=== PATIENT | male | born 1990 | race Caucasian/White ===

== ENCOUNTER 2017-02-04 22:23 | Emergency (ER) | payer BC, OTHER ==
[2017-02-04 22:48] VITALS: BP 127/83
--- NOTE | 2017-02-04 23:39 | EDM.PDOC ---
ED HPI GENERAL MEDICAL PROBLEM - General Chief Complaint: Lower Extremity Injury/Pain Stated Complaint: POSSIBLE RIGHT BROKEN LEG Time Seen by Provider: 02/04/17 23:28 Source of Information: Reports: Patient, RN Notes Reviewed History Limitations: Reports: No Limitations - History of Present Illness INITIAL COMMENTS - FREE TEXT/NARRATIVE: The patient states that he was playing baseball, and was sliding into home plate feet first, when he rotated his right foot outward, around 21:30. He presents with pain primarily to the lateral aspect of his right ankle, but also complains of pain to his proximal lateral right leg. He is otherwise uninjured. The patient states that he sprained his right ankle on 12/31/2016, requiring surgical screws. The patient's PCP is Annie Artis. His previous orthopedic surgeon is Dr. Mcclain, from [place]. Right Lower Leg Pain Score (Numeric/FACES): 7 - Related Data Allergies Allergy/AdvReac Type Severity Reaction Status Date / Time No Known Allergies Allergy Verified 02/04/17 22:41 Home Meds: Home Meds Hydrocodone/Acetaminophen [[place] 5-325 Tablet] 1 - 2 tab PO Q6H PRN #20 tablet 02/05/17 [Rx] Past Medical History - Past Surgical History Musculoskeletal Surgical History: Reports: ORIF (Right ankle, Left forearm) Social & Family History - Tobacco Use Smoking Status *Q: Never Smoker Tobacco Use Within Last Twelve Months: Other (See Below) (Vape) Second Hand Smoke Exposure: No - Alcohol Use Alcohol Use History: Yes Alcohol Use Frequency: Socially - Recreational Drug Use Recreational Drug Use: No - Living Situation & Occupation Living situation: Reports: , with Significant Other (Fiance) 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) Review of Systems - Review of Systems Review Of Systems: See Below Constitutional: Reports: No Symptoms Eyes: Reports: No Symptoms Ears: Reports: No Symptoms Nose: Reports: No Symptoms Mouth/Throat: Reports: No Symptoms Respiratory: Reports: No Symptoms Cardiovascular: Reports: No Symptoms GI/Abdominal: Reports: No Symptoms Genitourinary: Reports: No Symptoms Musculoskeletal: Reports: No Symptoms Skin: Reports: No Symptoms Neurological: Reports: No Symptoms Psychiatric: Reports: No Symptoms ED EXAM, GENERAL - Physical Exam Exam: See Below Exam Limited By: No Limitations General Appearance: Alert, WD/WN, No Apparent Distress Extremities: Other (There is considerable swelling with ecchymosis to the lateral aspect of the patient's right ankle. This is tender to palpation. Nontender to the medial malleolus. Nontender to the anterior and posterior syndesmoses. There is additional tenderness and swelling to the proximal lateral right leg, without ecchymosis or abrasion. Neurovascular status of the right lower extremity is intact.) ED TRAUMA EXTREMITY PROCEDURES - Splinting Right Lower Extremity Splint Site: Right leg/ankle Pre-Procedure NV Status: Normal Post-Procedure NV Status: Normal Splint Material: Fiberglass Splint Design: Posterior (with ankle at 90) Applied & Form Fitted By: Provider Provider Post-Splint Application NV Check: NV Status Normal, Good Position Complications: No Course - Vital Signs Last Recorded V/S: Last Vital Signs Temp Pulse 80 02/04/17 22:41 Resp 16 02/04/17 22:41 BP 127/83 02/04/17 22:41 Pulse Ox 98 02/04/17 22:41 - Orders/Labs/Meds Orders: Active Orders 24 hr Category Date Time Status Tibia Fibula Rt [CR] Stat Exams 02/04/17 22:43 Taken DME for Discharge [COMM] Stat Oth 02/05/17 00:20 Ordered Meds: Medications Discontinued Medications Generic Name Dose Route Start Last Admin Trade Name Freq PRN Reason Stop Dose Admin Hydrocodone Bitart/Acetaminophen 2 tab 02/04/17 23:46 02/04/17 23:52 [place] 325-5 Mg PO 02/04/17 23:47 2 tab ONETIME ONE Administration - Radiology Interpretation Free Text/Narrative:: 5-view radiographs of the right tibia/fibula appear to demonstrate a proximal fibular greenstick fracture. There is a bony opacity lateral to the talus, consistent with an avulsion fracture, not seen on prior ankle radiographs dated 01/01/2016. Additionally, there is asymmetry of the ankle mortise, suggesting ligamentous injury. Formal read per the Radiologist pending. - Re-Assessments/Exams Free Text/Narrative Re-Assessment/Exam: 02/05/17 00:19 A posterior mold splint was applied. The patient will be fitted for crutches. I will prescribe [place]. I will provide a note for work, instructing that he elevate his foot when not ambulating. He will be referred to Dr. Alvarado. Departure - Departure Time of Disposition: 00:19 Disposition: Home, Self-Care 01 Condition: Fair Clinical Impression: Fracture of proximal end of right fibula, Avulsion fracture of right ankle - Discharge Information Prescriptions: Hydrocodone/Acetaminophen [[place] 5-325 Tablet] 1 - 2 tab PO Q6H PRN #20 tablet PRN Reason: Pain (Severe 7-10) Instructions: Fibular Ankle Fracture Treated With or Without Immobilization, Adult Referrals: PCP,None [Primary Care Provider] - Donny Alvarado MD [Physician] - Forms: ED Department Discharge, Return to Work/School Form Additional Instructions: You were seen in the emergency room after injuring your right leg while sliding into home plate. X-rays of your right leg and ankle indicate that you have a fracture of your proximal fibula, and an avulsion fracture of your ankle. You have been placed into a splint. You may apply an ice pack over the splint, however, the splint cannot get wet. The splint cannot bear weight. Use crutches to get around. Elevate your right foot as much as possible when you are not walking around, for at least the next 3 days, to help minimize swelling. Take [id number]-[id number] ibuprofen 3-4 tablets (600-800 mg) every 8 hours, with food, as needed for pain. Take 1 to 2 tablets of [place] up to every 6 hours as needed for pain not relieved by ibuprofen. If you take [place], do not drive or operate heavy machinery. [place] will likely cause constipation, so consider taking a stool softener. Follow-up with the orthopedic surgeon Dr. Alvarado next week. If any other problems, please do not hesitate to return to the ER. - My Orders Last 24 Hours: My Active Orders 02/04/17 22:43 Tibia Fibula Rt [CR] Stat 02/05/17 00:20 DME for Discharge [COMM] Stat - Assessment/Plan Last 24 Hours: My Active Orders 02/04/17 22:43 Tibia Fibula Rt [CR] Stat 02/05/17 00:20 DME for Discharge [COMM] Stat
[2017-02-04] MEDS ORDERED: Acetaminophen/HYDROcodone 325-5 MG Tab PO ONE (23:46)
--- NOTE | 2017-02-05 07:43 | CR ---
Right ankle: Three views of the right ankle were obtained. Ankle mortise is slightly asymmetric suggesting the possibility of ankle instability from medial collateral injury. Bony density is seen off the medial ankle which appears fairly well corticated and most likely is old. No acute fracture is identified. Impression: 1. Soft tissue swelling. 2. Slightly asymmetric ankle mortise possibly due to mild instability from medial collateral ligament injury. Please correlate. 3. Well-corticated bony density felt to represent old injury off the medial ankle. Diagnostic code #3
--- NOTE | 2017-02-05 07:43 | CR ---
Right tibia and fibula: AP and lateral views of the right tibia and fibula were obtained. Comparison: No previous tibia or fibula exam. Fracture is identified within the proximal diaphysis of the fibula which is mildly comminuted. Alignment remains close to anatomic. Joint spaces within the knee are maintained. Soft tissue swelling is noted around the ankle. No additional fracture or other abnormality is appreciated. Impression: 1. Proximal fibular diaphyseal fracture. 2. Soft tissue swelling is seen around the ankle. Diagnostic code #3
== END 2017-02-05 00:50 | disposition home or self-care (01) ==
LOC: JD.ED 22:23
DX: S82.831A Other fracture of upper and lower end of right fibula, initial encounter for closed fracture (principal); Z98.890 Other specified postprocedural states; X50.1XXA Overexertion from prolonged static or awkward postures, initial encounter; Y93.64 Activity, baseball
CPT/HCPCS: 29505; 73590; 73610; 99283; A9270; 29515

== ENCOUNTER → 2017-02-09 | Day surgery (SDC) | payer OTHER ==
[~2017-02-09] MED LIST: Midazolam 1 MG/ML 2 ML SDV ONE; Ondansetron 4 MG/2 ML SDV ONE; Propofol 200 MG/20 ML SDV ONE; ceFAZolin 1 GM Vial ONE; fentaNYL 250 MCG/5 ML SDV ONE
--- NOTE | 2017-02-09 12:49 | PCM.PREANE ---
Preanesthetic Assessment - Procedure Proposed Procedure: ORIF syndesmosis right ankle - Anesthesia/Transfusion/Family Hx Anesthesia History: Prior Anesthesia Without Reaction Family History of Anesthesia Reaction: No - Review of Systems General: No Symptoms Pulmonary: No Symptoms Cardiovascular: No Symptoms Gastrointestinal: No symptoms Neurological: No Symptoms Other: Reports: None - Physical Assessment NPO Status Date: 02/11/17 NPO Status Time: 23:00 Pulse: 61 O2 Sat by Pulse Oximetry: 98 Respiratory Rate: 16 Blood Pressure: 131/80 Temperature: 36.9 C Vital Signs: Last Vital Signs Temp 37.5 C 02/09/17 11:15 Pulse 67 02/09/17 11:15 Resp 16 02/09/17 11:15 BP 140/74 02/09/17 11:15 Pulse Ox 95 02/09/17 11:15 Height: 1.8 m Weight: 98.883 kg ASA Class: 2 Mental Status: Alert & Oriented x3 Airway Class: Mallampati = 1 Dentition: Reports: Broken Tooth/Teeth, Missing Tooth/Teeth, Caries (poor dentition) Thyro-Mental Finger Breadths: 3 Mouth Opening Finger Breadths: 3 ROM/Head Extension: Full Lungs: Clear to auscultation, Normal respiratory effort Cardiovascular: Regular Rate, Regular Rhythm, No Murmurs - Lab Values: Laboratory Last Values WBC 11.84 K/mm3 (4.23-9.07) H 02/06/17 13:25 RBC 5.60 M/mm3 (4.63-6.08) 02/06/17 13:25 Hgb 15.9 gm/L (13.7-17.5) 02/06/17 13:25 Hct 45.5 % (40.1-51.0) 02/06/17 13:25 MCV 81.3 fl (79.0-92.2) 02/06/17 13:25 MCH 28.4 pg (25.7-32.2) 02/06/17 13:25 MCHC 34.9 g/dl (32.2-35.5) 02/06/17 13:25 RDW Std Deviation 39.2 fL (35.1-43.9) 02/06/17 13:25 Plt Count 204 K/mm3 (163-337) 02/06/17 13:25 MPV 10.3 fl (9.4-12.3) 02/06/17 13:25 Neut % (Auto) 73.9 % (34.0-67.9) H 02/06/17 13:25 Lymph % (Auto) 14.2 % (21.8-53.1) L 02/06/17 13:25 [place] % (Auto) 9.6 % (5.3-12.2) 02/06/17 13:25 Eos % (Auto) 1.8 (0.8-7.0) 02/06/17 13:25 Baso % (Auto) 0.2 % (0.1-1.2) 02/06/17 13:25 Neut # (Auto) 8.76 K/mm3 (1.78-5.38) H 02/06/17 13:25 Lymph # (Auto) 1.68 K/mm3 (1.32-3.57) 02/06/17 13:25 [place] # (Auto) 1.14 K/mm3 (0.30-0.82) H 02/06/17 13:25 Eos # (Auto) 0.21 K/mm3 (0.04-0.54) 02/06/17 13:25 Baso # (Auto) 0.02 K/mm3 (0.01-0.08) 02/06/17 13:25 Sodium 137 mEq/L (136-145) 02/06/17 13:25 Potassium 4.0 mEq/L (3.5-5.1) 02/06/17 13:25 Chloride 101 mEq/L (98-107) 02/06/17 13:25 Carbon Dioxide 31 mEq/L (21-32) 02/06/17 13:25 Anion Gap 9.0 (5-15) 02/06/17 13:25 BUN 9 mg/dL (7-18) 02/06/17 13:25 Creatinine 1.0 mg/dL (0.7-1.3) 02/06/17 13:25 Est Cr Clr Drug Dosing 117.13 mL/min 02/06/17 13:25 Estimated GFR (MDRD) > 60 mL/min (>60) 02/06/17 13:25 BUN/Creatinine Ratio 9.0 (14-18) L 02/06/17 13:25 Glucose 96 mg/dL (74-106) 02/06/17 13:25 Calcium 9.0 mg/dL (8.5-10.1) 02/06/17 13:25 MRSA (PCR) Negative 02/06/17 13:25 - Allergies Allergies/Adverse Reactions: Allergies Allergy/AdvReac Type Severity Reaction Status Date / Time No Known Allergies Allergy Verified 02/11/17 12:18 - Blood Blood Available: No - Acknowledgements Anesthesia Type Planned: General Anesthesia Pt an Appropriate Candidate for the Planned Anesthesia: Yes Alternatives and Risks of Anesthesia Discussed w Pt/Guardian: Yes Pt/Guardian Understands and Agrees with Anesthesia Plan: Yes PreAnesthesia Questionnaire - Past Health History Medical/Surgical History: Denies Medical/Surgical History Other Musculoskeletal History: orif ankle, orif forearm - Past Surgical History Musculoskeletal Surgical History: Reports: ORIF (Right ankle, Left forearm) - SUBSTANCE USE Smoking Status *Q: Former Smoker (Quit 3 yrs ago after 10 pack year hx. uses E- cigarette for last 3 yrs. Pt was encouraged to quit using the e-cigarette also) Tobacco Use Within Last Twelve Months: Other (See Below) (Vape) Second Hand Smoke Exposure: No Days Per Week of Alcohol Use: 1 Number of Drinks Per Day: 3 Total Drinks Per Week: 3 Recreational Drug Use History: No - HOME MEDS Home Medications: Home Meds Cyclobenzaprine [Flexeril] 10 mg PO TID PRN #40 tablet 02/09/17 [Rx] Hydrocodone/Acetaminophen [[place] 5-325] 1 - 2 tab PO Q6H PRN #40 tablet [Rx] Aspirin 325 mg PO BID #84 tablet 02/10/17 [Rx] - CURRENT (IN HOUSE) MEDS Current Meds: Current Medications Discontinued Medications Cefazolin Sodium (Ancef) Confirm Administered Dose 2 gm .ROUTE .STK-MED ONE Stop: 02/09/17 11:53 Fentanyl (Sublimaze) Confirm Administered Dose 250 mcg .ROUTE .STK-MED ONE Stop: 02/09/17 11:53 Midazolam HCl (Versed 1 Mg/Ml) Confirm Administered Dose 2 mg .ROUTE .STK-MED ONE Stop: 02/09/17 11:53 Ondansetron HCl (Zofran) Confirm Administered Dose 4 mg .ROUTE .STK-MED ONE Stop: 02/09/17 11:53 Propofol (Diprivan 20 Ml) Confirm Administered Dose 200 mg .ROUTE .[facility] ONE Stop: 02/09/17 11:53
[2017-02-12 07:47] VITALS: BP 131/80
== END | disposition home or self-care (01) ==
LOC: JD.SDS 11:06
PROVIDERS: ATTEND Orthopaedic Surgery
DX: M25.471 Effusion, right ankle (principal); Z53.09 Procedure and treatment not carried out because of other contraindication; Z79.82 Long term (current) use of aspirin; Z79.899 Other long term (current) drug therapy
CPT/HCPCS: 36415; 80048; 85025; 87641; J0690; J2250; J2405; J2704; J3010

== ENCOUNTER 2017-02-12 06:48 | Day surgery (SDC) | payer OTHER ==
[~2017-02-12 06:48] MED LIST changes: +Lactated Ringers 1,000 ML IV SCH; +Lidocaine 1%/Sod Bicarbonate in NS 8.4% 1 ML Syringe PRN; -Midazolam 1 MG/ML 2 ML SDV ONE; -Ondansetron 4 MG/2 ML SDV ONE; -Propofol 200 MG/20 ML SDV ONE; +Sodium Chloride 0.9% 10 ML Syringe FLUSH PRN; -ceFAZolin 1 GM Vial ONE; -fentaNYL 250 MCG/5 ML SDV ONE
[2017-02-12] MEDS ORDERED: Propofol 200 MG/20 ML SDV ONE (07:25)
[2017-02-12] MEDS ORDERED: fentaNYL 250 MCG/5 ML SDV ONE (07:26)
[2017-02-12] MEDS ORDERED: Midazolam 1 MG/ML 2 ML SDV ONE (07:26)
[2017-02-12] MEDS ORDERED: Lidocaine 1% 6 ML ONE (07:27)
[2017-02-12] MEDS ORDERED: ceFAZolin 1 GM Vial ONE (07:27)
[2017-02-12] MEDS ORDERED: Mineral Oil 10 ML Bottle ONE (08:05)
[2017-02-12] MEDS: Bupivacaine 0.25% 30 ML SDV ONE ×2 (08:11→08:35)
[2017-02-12] MEDS ORDERED: HYDROmorphone 1 MG/ML Syringe ONE (08:17)
[2017-02-12] MEDS ORDERED: Ondansetron 4 MG/2 ML SDV ONE (08:20)
[2017-02-12] MEDS ORDERED: HYDROmorphone 0.5 MG/0.5 ML Syringe IVPUSH PRN (08:31)
[2017-02-12] MEDS ORDERED: Lactated Ringers 1,000 ML ONE (08:38)
--- NOTE | 2017-02-12 09:10 | PCM.POSTAN ---
POST ANESTHESIA ASSESSMENT - MENTAL STATUS Mental Status: oriented, somnolent - VITAL SIGNS Pulse Rate: 70 SaO2: 99 Resp Rate: 9 Blood Pressure: 142/85 Temperature: 37.1 C - RESPIRATORY Respiratory Status: airway patent, O2 saturation stable, depressed resp rate - CARDIOVASCULAR CV Status: pulse rate WNL, blood pressure stable - GASTROINTESTINAL GI Status: no symptoms - PAIN Pain Score: 5 - POST OP HYDRATION Hydration Status: adequate & stable
--- NOTE | 2017-02-12 09:11 | CR ---
Right ankle: Multiple fluoroscopic spot views were obtained during operative exam utilizing C-arm device. Comparison: Previous right ankle study of 02/04/17. Shifting of the tibia in a medial direction is seen in relation to the talus. This is seen on the first exam. Study shows plate and screws being placed within the distal fibula affixing the fibula to the tibia. This appears to restore the alignment of the ankle mortise. Small bony density is seen off the medial talus which is stable. Fluoroscopy time given as 45.9 seconds. Impression: 1. Reduction and fixation of ankle mortise as described above. Diagnostic code #2
[2017-02-12] MEDS: fentaNYL 100 MCG/2 ML SDV IVPUSH PRN ×2 (09:25→09:50)
--- NOTE | 2017-02-12 10:13 | PCM48HPAN ---
Post Anesthesia Note - EVALUATION WITHIN 48HRS OF ANESTHETIC Vital Signs in Normal Range: Yes Patient Participated in Evaluation: Yes Respiratory Function Stable: Yes Airway Patent: Yes Cardiovascular Function Stable: Yes Hydration Status Stable: Yes Pain Control Satisfactory: Yes Nausea and Vomiting Control Satisfactory: Yes Mental Status Recovered: Yes - COMMENTS/OBSERVATIONS Free Text/Narrative:: Pt doing quite well
[2017-02-12] MEDS ORDERED: Acetaminophen/HYDROcodone 325-5 MG Tab PO ONE (11:15)
[2017-02-12 11:49] VITALS: BP 134/78
--- NOTE | 2017-02-13 13:17 | PCM.OPNOTE ---
- General Post-Op/Procedure Note Date of Surgery/Procedure: 02/12/17 Operative Procedure(s): open reduction internal fixation of right ankle syndesmosis Pre Op Diagnosis: right syndesmosis disruption with proximal fibula fracture Post-Op Diagnosis: Same Anesthesia Technique: General LMA, Local Primary Surgeon: Donny Alvarado Anesthesia Provider: Claus Benson [employer] Certified Internetwork Expert: Matilda Garcias EBL in mLs: 10 Complications: None Condition: Good
--- NOTE | 2017-02-13 13:49 | OR ---
DATE OF OPERATION: 02/12/2017 SURGEON: Donny Alvarado MD OPERATION PERFORMED: Open reduction and internal fixation, right ankle syndesmosis. PREOPERATIVE DIAGNOSIS: Right syndesmosis disruption with proximal fibular fracture. POSTOPERATIVE DIAGNOSIS: Right syndesmosis disruption with proximal fibular fracture with deltoid ligament entrapment. ANESTHESIA: General LMA with local. ANESTHESIA PROVIDER: Claus Benson MD. 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 ESTIMATED BLOOD LOSS: 10 mL. COMPLICATIONS: None. CONDITION: Stable. DESCRIPTION OF PROCEDURE: The patient was identified in the preoperative holding area. Proper site was marked and identified by the surgeon. The patient was taken back to the operating theater. After adequate anesthesia, the patient's right lower extremity was sterilely prepped and draped in the usual sterile fashion after a nonsterile tourniquet was applied. OR time-out was performed. The patient received 2 g IV Ancef. Right lower extremity was exsanguinated. Tourniquet was insufflated to 300 mmHg. At this time, a small incision was made over the previous incision on the lateral side. This was taken down to the fibula then small stab incision was made on the medial side for the [id number]-tv-[id number] reduction clamp. A large periarticular wkudn-of-ifhjw reduction clamp was then placed and was tightened. There was noted to be a better confucianist of the medial clear space, but the patient still has medial clear space widening even after compression. At this time, it was decided that we would inspect the medial gutter and the deltoid ligament. Incision was made over the medial side. This was taken down to the deltoid ligaments in the medial gutter. There was noted to be significant scar tissue in the medial gutter as well as part of the deltoid ligament entrapped in the medial clear space. At this time, this was removed using a rongeur and irrigation was used through and freer elevator was used to remove the soft tissues entrapped in the medial clear space. At this time, kaegx-mo-eicxc reduction clamp was then placed again and it was found to have adequate confucianist of the ankle mortise. A 2 hole [place] nonlocking plate was then placed in the proper position and two 3.5 cortical screws were placed in quadricortical through the distal fibula into the tibia. There was found to be adequate fixation of the syndesmosis as well as confucianist of the ankle mortise. The patient tolerated the procedure well and had closed with 2-0 Vicryl and 4-0 and 3-0 nylon. The patient was placed in a posterior slab splint. Tolerated the procedure well and will follow up in 2 weeks' time. MMODAL /[id number]
== END 2017-02-12 11:40 | disposition home or self-care (01) ==
LOC: JD.SDS 06:48
PROVIDERS: ATTEND Orthopaedic Surgery
DX: S93.431A Sprain of tibiofibular ligament of right ankle, initial encounter (principal); S82.491A Other fracture of shaft of right fibula, initial encounter for closed fracture; X58.XXXA Exposure to other specified factors, initial encounter; Z87.891 Personal history of nicotine dependence
CPT/HCPCS: 27829; 76000; A9270; C1713; J0690; J1170; J2250; J2405; J3010; J7120; 01480; J2704; J3490

== ENCOUNTER 2024-06-01 23:12 | Emergency (ER) | payer OTHER ==
[2024-06-01] MEDS ORDERED: Sodium Chloride 0.9% 10 ML Syringe FLUSH PRN (23:40)
[2024-06-01] MEDS ORDERED: Naloxone 0.4 MG/ML SDV IVPUSH PRN (23:40)
[2024-06-01] MEDS: Diphtheria,Pertussis(Acell),Tetanus Vaccine 0.5 ML Syringe IM ONE (23:57)
[2024-06-01] MEDS: HYDROmorphone 0.5 MG/0.5 ML Syringe IVPUSH ONE (23:57)
[2024-06-01] MEDS: ceFAZolin 2 GM in Sodium Chloride 0.9% 50 ML IV ONE (23:57)
[2024-06-02 00:20] LABS: BASOPHILS PERCENT AUTO 0.5 % (0.0-1.0); EOSINOPHILS ABSOLUTE AUTO 0.4 K/mm3 (0.0-0.4); EOSINOPHILS PERCENT AUTO 4.3 % (0.0-6.0); HEMATOCRIT 45.3 % (42.0-52.0); HEMOGLOBIN 15.8 gm/dl (14.0-18.0); IMMATURE GRAN ABSOLUTE AUTO 0.03 K/mm3 (0.00-0.05); IMMATURE GRAN PERCENT AUTO 0.3 % (0.0-0.4); LYMPHOCYTES ABSOLUTE AUTO 2.8 K/mm3 (1.0-4.8); LYMPHOCYTES PERCENT AUTO 32.4 % (24.0-44.0); MEAN CORPUSCULAR HEMOGLOBIN 28.8 pg (28.0-32.0); MEAN CORPUSCULAR HGB CONC 34.9 g/dl (32.0-36.0); MEAN CORPUSCULAR VOLUME 82.7 fl (83.0-99.0); MONOCYTES ABSOLUTE AUTO 0.6 K/mm3 (0.0-0.8); MONOCYTES PERCENT AUTO 6.3 % (0.0-8.0); NEUTROPHILS ABSOLUTE AUTO 4.9 K/mm3 (1.8-7.7); NEUTROPHILS PERCENT AUTO 56.2 % (41.0-71.0); PLATELET COUNT,PLT 210 K/mm3 (150-400); RED BLOOD CELL COUNT 5.48 M/mm3 (4.52-5.90); WHITE BLOOD CELL COUNT,WBC 8.77 K/mm3 (3.9-11.3)
[2024-06-02 00:49] LABS: A/G RATIO 1.3 (1-2); ALBUMIN 4.3 g/dl (3.4-5.0); ANION GAP 13.2 (5-15); BUN/CREATININE RATIO 8.3 (14-18); CALCIUM 9.3 mg/dL (8.5-10.1); CREATININE 1.2 mg/dL (0.7-1.3); EST CRCL DRUG DOSING (CG) 93.41 mL/min; POTASSIUM,K 3.2 mEq/L (3.5-5.1); PROTEIN TOTAL,TP 7.5 g/dl (6.4-8.2)
[2024-06-02] MEDS: Ketorolac 30 MG/ML SDV IVPUSH ONE (01:59)
[2024-06-02] MEDS: Acetaminophen/oxyCODONE 325-5 MG Tab PO ONE (01:59)
[2024-06-02 03:35] VITALS: BP 145/81; PULSE 58
== END 2024-06-02 03:30 ==
LOC: JD.ED 23:12
DX: S01.452A Open bite of left cheek and temporomandibular area, initial encounter (principal); S01.551A Open bite of lip, initial encounter; Z23 Encounter for immunization; W54.0XXA Bitten by dog, initial encounter
CPT/HCPCS: 36415; 80053; 85025; 90471; 90715; 96365; 96375; 99284; A9270; J0690; J1171; J1885; J3490; 99285